=== PATIENT | male | born 1945 | race African-American/Black ===

== ENCOUNTER 2024-05-28 20:09 | Inpatient (IN) | payer MEDICARE, MEDICAID ==
[~2024-05-28] VITALS: Ht 185.4 cm; Wt 59.6 kg
[2024-05-28] MEDS ORDERED: ALBUTEROL (0.083%) 2.5MG/3ML NEB HHN SCH (20:30)
[2024-05-28 20:54] VITALS: RESP 38
[2024-05-28] MEDS: ALBUTEROL (0.083%) 2.5MG/3ML NEB HHN STA (20:54)
[2024-05-28] MEDS: IPRATROPIUM BROMIDE (0.02%) 0.5MG/2.5ML NEB HHN STA (20:54)
[2024-05-28 21:24] LABS: BG BASE EXCESS -6.6 mmol/L (-2.0-3.0); BG CARBOXYHEMOGLOBIN 0.1 % (0.5-1.5); BG DEOXYHEMOGLOBIN 0.3 % (0.0-5.0); BG FRACTION INSPIRED OXYGEN 100; BG HCO3 ACT 15.4 mmol/L (21.0-28.0); BG METHEMOGLOBIN 0.4 % (0.5-1.5); BG OXYGEN SATURATION 99.7 % (94.0-98.0); BG OXYHEMOGLOBIN 99.2 % (94.0-98.0); BG PCO2 21.1 mmHg (35.0-48.0); BG PH 7.482 (7.350-7.450); BG SAMPLE SITE RIGHT RADIAL; BG TOTAL HEMOGLOBIN 9.4 g/dL (13.5-17.5); BG VENT MODE MASK - BIPAP
[2024-05-28] MEDS: METHYLPREDNISOLONE SOD SUCC 125MG/2ML (ACT-O-VIAL) IV STA (21:32)
[2024-05-28 21:54] LABS: CHLORIDE 100 mEq/L (98-107); POTASSIUM 3.9 mEq/L (3.5-5.1); SODIUM 134 mEq/L (136-145)
[2024-05-28 21:55] LABS: CARBON DIOXIDE 17 mEq/L (21-32)
[2024-05-28 21:56] LABS: CALCIUM 9.3 mg/dL (8.7-10.4)
[2024-05-28 22:01] LABS: GLUCOSE 204 mg/dL (70-105); UREA NITROGEN BLOOD 15 mg/dL (9-23)
[2024-05-28 22:02] LABS: ALANINE AMINOTRANSFERASE 12 IU/L (10-49); ALBUMIN 4.2 g/dL (3.2-4.8); ASPARTATE AMINOTRANSFERASE 19 IU/L (<34)
[2024-05-28 22:03] LABS: BILIRUBIN DIRECT 0.2 mg/dL (<=3.0); BILIRUBIN TOTAL 0.5 mg/dL (0.1-1.0); PROTEIN TOTAL 7.8 g/dL (6.0-8.3)
[2024-05-28 22:04] LABS: DIFFERENTIAL COMMENT 1; HEMATOCRIT. 31.2 % (42.0-52.0); HEMOGLOBIN. 8.6 g/dL (14.0-18.0); MEAN CORPUSCULAR HEMOGLOBIN 25.4 pg (28.0-32.0); MEAN CORPUSCULAR HGB CONC 27.4 g/dL (31.0-37.0); MEAN CORPUSCULAR VOLUME 92.4 fL (80.0-94.0); MEAN PLATELET VOLUME 7.2 fl (7.4-10.4); PLATELET 449 x1000/uL (130-400); RED BLOOD CELL COUNT 3.38 mill/uL (4.7-6.1); RED CELL DISTRIBUTION WIDTH 21.6 % (11.6-14.6); WHITE BLOOD COUNT 16.1 x1000/uL (4.5-11.0)
[2024-05-28 22:11] LABS: INR 1.5; PARTIAL THROMBOPLASTIN TIME 25.3 sec (23.4-31.0); PROTHROMBIN TIME 16.1 sec (9.6-11.0)
[2024-05-28 22:14] LABS: TROPONIN I HIGH SENSITIVITY < 4 ng/L (3.0-53)
[2024-05-28 22:15] VITALS: RESP 33
[2024-05-28 22:18] LABS: LACTIC ACID 7.2 mmol/L (0.4-2.0)
[2024-05-28 22:23] LABS: ANISOCYTOSIS 2+; PLATELET ESTIMATE INCREASED
[2024-05-28] MEDS ORDERED: DEXTROSE 50% WATER 50ML SYRINGE IV PRN (23:45)
[2024-05-29] VITALS (9 sets, daily range): BP systolic 108–146; BP diastolic 74–123; PULSE 88–109; RESP 13–32; TEMP 36.16956–37.0296; O2SAT 91–100
[2024-05-29] MEDS: PIPERACILLIN/TAZO 3.375G/50ML 50 ML IV STA (00:54)
[2024-05-29] MEDS: SODIUM CHLORIDE 0.9% 1000ML BAG (SEPSIS BOLUS) IV ONE (00:55)
[2024-05-29] MEDS: VANCOMYCIN 1G PREMIX 200 ML IV SCH (03:55)
[2024-05-29 04:59] LABS: BASOPHILS % 0.1 % (0.0-2.0); HEMATOCRIT. 24.9 % (42.0-52.0); HEMOGLOBIN. 7.7 g/dL (14.0-18.0); LYMPHOCYTES % 1.2 % (20.0-50.0); MEAN CORPUSCULAR HEMOGLOBIN 25.9 pg (28.0-32.0); MEAN CORPUSCULAR VOLUME 83.5 fL (80.0-94.0); MONOCYTES % 1.1 % (2.0-8.0); NEUTROPHILS % 97.6 % (40.0-76.0); PLATELET 347 x1000/uL (130-400); RED BLOOD CELL COUNT 2.98 mill/uL (4.7-6.1); RED CELL DISTRIBUTION WIDTH 20.3 % (11.6-14.6); WHITE BLOOD COUNT 12.4 x1000/uL (4.5-11.0)
[2024-05-29 05:05] LABS: CARBON DIOXIDE 21 mEq/L (21-32); CHLORIDE 102 mEq/L (98-107); POTASSIUM 3.8 mEq/L (3.5-5.1); SODIUM 133 mEq/L (136-145)
[2024-05-29 05:06] LABS: CALCIUM 8.9 mg/dL (8.7-10.4)
[2024-05-29 05:08] LABS: DIFFERENTIAL COMMENT 1
[2024-05-29 05:10] LABS: CREATININE 0.9 mg/dL (0.6-1.3); GLUCOSE 174 mg/dL (70-105)
[2024-05-29 05:11] LABS: UREA NITROGEN BLOOD 17 mg/dL (9-23)
[2024-05-29 05:12] LABS: ALANINE AMINOTRANSFERASE 10 IU/L (10-49); ALBUMIN 3.9 g/dL (3.2-4.8); ASPARTATE AMINOTRANSFERASE 13 IU/L (<34)
[2024-05-29 05:13] LABS: BILIRUBIN DIRECT 0.1 mg/dL (<=3.0); BILIRUBIN TOTAL 0.4 mg/dL (0.1-1.0); PHOSPHORUS 4.2 mg/dL (2.5-4.9)
[2024-05-29] MEDS ORDERED: IOHEXOL-350 100 ML BOTTLE ONE (08:04)
[2024-05-29 08:20] LABS: BG CARBOXYHEMOGLOBIN 0.3 % (0.5-1.5); BG DEOXYHEMOGLOBIN 0.5 % (0.0-5.0); BG HCO3 ACT 19.1 mmol/L (21.0-28.0); BG OXYGEN SATURATION 99.5 % (94.0-98.0); BG OXYHEMOGLOBIN 99.2 % (94.0-98.0); BG PCO2 28.5 mmHg (35.0-48.0); BG PH 7.443 (7.350-7.450); BG PO2 139.3 mmHg (83.0-108.0); BG SAMPLE SITE RIGHT RADIAL; BG TOTAL HEMOGLOBIN 10.8 g/dL (13.5-17.5); BG VENT MODE NASAL CANNULA
[2024-05-29] MEDS ORDERED: CLONIDINE 0.1MG TABLET PO PRN (10:30)
[2024-05-29] MEDS ORDERED: DOCUSATE SODIUM 100MG CAPSULE PO PRN (10:30)
[2024-05-29] MEDS ORDERED: ACETAMINOPHEN 325MG TABLET PO PRN (10:30)
[2024-05-29] MEDS ORDERED: ONDANSETRON HCL 4MG/2ML INJ IV PRN (10:30)
[2024-05-29] MEDS: ENOXAPARIN 80MG/0.8ML SYR SUBCUT SCH (12:00)
[2024-05-29] MEDS: CEFTRIAXONE 1GM/50ML 50 ML IV SCH (13:00)
[2024-05-29] MEDS: IPRATROPIUM/ALBUTEROL 0.5-3(2.5)MG/3ML NEB HHN PRN (15:18)
[2024-05-29] MEDS ORDERED: IPRATROPIUM/ALBUTEROL 0.5-3(2.5)MG/3ML NEB HHN NR (15:30)
[2024-05-29] MEDS: ACETAMINOPHEN 325MG TABLET PO PRN (16:48)
[2024-05-29] MEDS ORDERED: IPRATROPIUM/ALBUTEROL 0.5-3(2.5)MG/3ML NEB HHN SCH (21:00)
[2024-05-30] VITALS (12 sets, daily range): BP systolic 99–135; BP diastolic 62–97; PULSE 90–119; RESP 17–27; TEMP 36.28068–36.9474; O2SAT 97–100
[2024-05-30 06:10] LABS: CARBON DIOXIDE 20 mEq/L (21-32); CHLORIDE 103 mEq/L (98-107); POTASSIUM 4.1 mEq/L (3.5-5.1); SODIUM 136 mEq/L (136-145)
[2024-05-30 06:11] LABS: CALCIUM 9.8 mg/dL (8.7-10.4)
[2024-05-30 06:12] LABS: HEMATOCRIT. 30.3 % (42.0-52.0); MEAN CORPUSCULAR HEMOGLOBIN 25.2 pg (28.0-32.0); MEAN CORPUSCULAR HGB CONC 29.8 g/dL (31.0-37.0); MEAN CORPUSCULAR VOLUME 84.7 fL (80.0-94.0); MEAN PLATELET VOLUME 7.5 fl (7.4-10.4); PLATELET 473 x1000/uL (130-400); RED BLOOD CELL COUNT 3.58 mill/uL (4.7-6.1); RED CELL DISTRIBUTION WIDTH 20.9 % (11.6-14.6); WHITE BLOOD COUNT 14.9 x1000/uL (4.5-11.0)
[2024-05-30 06:14] LABS: CREATININE 0.8 mg/dL (0.6-1.3); DIFFERENTIAL COMMENT 1
[2024-05-30 06:16] LABS: GLUCOSE 153 mg/dL (70-105); UREA NITROGEN BLOOD 21 mg/dL (9-23)
[2024-05-30 06:45] LABS: TROPONIN I HIGH SENSITIVITY < 4 ng/L (3.0-53)
[2024-05-30 09:55] LABS: CLARITY URINE CLEAR (CLEAR); COLOR URINE YELLOW (YELLOW); GLUCOSE URINE NEGATIVE (NEGATIVE); KETONES URINE NEGATIVE (NEGATIVE); LEUKOCYTE ESTERASE URINE NEGATIVE (NEGATIVE); NITRITE URINE NEGATIVE (NEGATIVE); OCCULT BLOOD URINE NEGATIVE (NEGATIVE); PROTEIN URINE 1+ (NEGATIVE); SPECIFIC GRAVITY URINE 1.038 (1.005-1.030); UROBILINOGEN URINE 0.2 E.U./dL (0.2-1.0)
[2024-05-30] MEDS ORDERED: ENOXAPARIN 60MG/0.6ML SYR SUBCUT SCH (10:05)
[2024-05-30 10:20] LABS: BACTERIA URINE 1+; RBC URINE NONE SEEN /hpf (0-2); WBC URINE 0-2 /hpf (0-2); YEAST URINE NONE SEEN
[2024-05-30 10:21] LABS: SQUAMOUS EPITHELIAL CELL URINE RARE /lpf (RARE/1+)
[2024-05-30] MEDS: ENOXAPARIN 60MG/0.6ML SYR SUBCUT SCH (11:35)
[2024-05-30 16:51] LABS: ANISOCYTOSIS 2+; PLATELET ESTIMATE INCREASED
[2024-05-31] VITALS (20 sets, daily range): BP systolic 103–139; BP diastolic 67–93; PULSE 106–124; RESP 20–33; TEMP 36.114–36.89184; O2SAT 97–100
[2024-05-31] MEDS: IPRATROPIUM BROMIDE (0.02%) 0.5MG/2.5ML NEB HHN SCH (18:00)
[2024-05-31] MEDS: BUDESONIDE 0.5MG/2ML NEB HHN SCH (20:00)
[2024-06-01] VITALS (16 sets, daily range): BP systolic 107–136; BP diastolic 66–100; PULSE 89–121; RESP 18–29; TEMP 35.94732–36.72516; O2SAT 94–100
[2024-06-01 08:25] LABS: CALCIUM 9.2 mg/dL (8.7-10.4); CHLORIDE 104 mEq/L (98-107); POTASSIUM 3.7 mEq/L (3.5-5.1); SODIUM 136 mEq/L (136-145)
[2024-06-01 08:26] LABS: CARBON DIOXIDE 22 mEq/L (21-32)
[2024-06-01 08:31] LABS: CREATININE 0.6 mg/dL (0.6-1.3); GLUCOSE 107 mg/dL (70-105); HEMATOCRIT. 26.3 % (42.0-52.0); MEAN CORPUSCULAR HEMOGLOBIN 25.3 pg (28.0-32.0); MEAN CORPUSCULAR HGB CONC 30.6 g/dL (31.0-37.0); MEAN CORPUSCULAR VOLUME 82.9 fL (80.0-94.0); MEAN PLATELET VOLUME 7.7 fl (7.4-10.4); PLATELET 391 x1000/uL (130-400); RED BLOOD CELL COUNT 3.17 mill/uL (4.7-6.1); RED CELL DISTRIBUTION WIDTH 21.2 % (11.6-14.6); WHITE BLOOD COUNT 12.4 x1000/uL (4.5-11.0)
[2024-06-01 08:32] LABS: UREA NITROGEN BLOOD 14 mg/dL (9-23)
[2024-06-01 08:58] LABS: DIFFERENTIAL COMMENT 1
[2024-06-01] MEDS: METOPROLOL TARTRATE 50MG TABLET PO SCH (12:35)
[2024-06-02] VITALS (17 sets, daily range): BP systolic 87–125; BP diastolic 58–79; PULSE 84–123; RESP 20–28; TEMP 36.22512–37.11408; O2SAT 95–98
[2024-06-02 04:54] LABS: PLATELET ESTIMATE NORMAL
[2024-06-02 08:16] LABS: HEMATOCRIT. 28.4 % (42.0-52.0); HEMOGLOBIN. 8.5 g/dL (14.0-18.0); MEAN CORPUSCULAR HEMOGLOBIN 25.4 pg (28.0-32.0); MEAN CORPUSCULAR HGB CONC 29.8 g/dL (31.0-37.0); MEAN CORPUSCULAR VOLUME 85.2 fL (80.0-94.0); MEAN PLATELET VOLUME 7.5 fl (7.4-10.4); PLATELET 380 x1000/uL (130-400); RED BLOOD CELL COUNT 3.34 mill/uL (4.7-6.1); RED CELL DISTRIBUTION WIDTH 21.2 % (11.6-14.6); WHITE BLOOD COUNT 9.4 x1000/uL (4.5-11.0)
[2024-06-02 08:22] LABS: CHLORIDE 103 mEq/L (98-107); POTASSIUM 4.2 mEq/L (3.5-5.1); SODIUM 135 mEq/L (136-145)
[2024-06-02 08:23] LABS: CARBON DIOXIDE 23 mEq/L (21-32)
[2024-06-02 08:27] LABS: DIFFERENTIAL COMMENT 1
[2024-06-02 08:28] LABS: CREATININE 0.6 mg/dL (0.6-1.3); GLUCOSE 82 mg/dL (70-105); UREA NITROGEN BLOOD 13 mg/dL (9-23)
[2024-06-02] MEDS: HYDROCODONE/ACETAMINOPHEN 5/325MG TABLET PO PRN (11:10)
[2024-06-02 13:54] LABS: ANISOCYTOSIS 3+; PLATELET ESTIMATE NORMAL
[2024-06-02] MEDS ORDERED: METO-539 PO (14:08)
[2024-06-02] MEDS ORDERED: LORAZEPAM 1MG TABLET PO NR (17:45)
[2024-06-03] VITALS (14 sets, daily range): BP systolic 92–115; BP diastolic 65–76; PULSE 88–122; RESP 20–32; TEMP 36.22512–37.16964; O2SAT 97–100
[2024-06-03] MEDS: ENOXAPARIN 40MG/0.4ML SYR SUBCUT SCH (12:14)
[2024-06-03] MEDS ORDERED: NALOXONE HCL 0.4MG/ML VIAL IV PRN (13:45)
[2024-06-04] VITALS (12 sets, daily range): BP systolic 96–140; BP diastolic 63–125; PULSE 84–115; RESP 20–34; TEMP 36.114–36.61404; O2SAT 95–99
[2024-06-04] MEDS: BUDESONIDE 0.5MG/2ML NEB HHN SCH (21:36)
[2024-06-05] VITALS (10 sets, daily range): BP systolic 92–129; BP diastolic 54–80; PULSE 90–125; RESP 18–31; TEMP 35.89176–37.00296; O2SAT 95–100
[2024-06-05 05:59] LABS: CARBON DIOXIDE 23 mEq/L (21-32); CHLORIDE 103 mEq/L (98-107); POTASSIUM 3.8 mEq/L (3.5-5.1); SODIUM 134 mEq/L (136-145)
[2024-06-05 06:01] LABS: CALCIUM 8.7 mg/dL (8.7-10.4)
[2024-06-05 06:03] LABS: CREATININE 0.7 mg/dL (0.6-1.3)
[2024-06-05 06:04] LABS: GLUCOSE 148 mg/dL (70-105)
[2024-06-05 06:05] LABS: UREA NITROGEN BLOOD 16 mg/dL (9-23)
[2024-06-05 06:11] LABS: HEMATOCRIT. 28.5 % (42.0-52.0); HEMOGLOBIN. 8.5 g/dL (14.0-18.0); MEAN CORPUSCULAR HEMOGLOBIN 25.5 pg (28.0-32.0); MEAN CORPUSCULAR HGB CONC 29.9 g/dL (31.0-37.0); MEAN CORPUSCULAR VOLUME 85.2 fL (80.0-94.0); MEAN PLATELET VOLUME 7.3 fl (7.4-10.4); PLATELET 331 x1000/uL (130-400); RED BLOOD CELL COUNT 3.34 mill/uL (4.7-6.1); RED CELL DISTRIBUTION WIDTH 21.6 % (11.6-14.6); WHITE BLOOD COUNT 12.5 x1000/uL (4.5-11.0)
[2024-06-05 06:46] LABS: DIFFERENTIAL COMMENT 1
[2024-06-05 12:58] LABS: ANISOCYTOSIS 3+; HYPOCHROMASIA 1+; PLATELET ESTIMATE NORMAL
[2024-06-06] VITALS (7 sets, daily range): BP systolic 104–124; BP diastolic 64–78; PULSE 90–124; RESP 16–30; TEMP 36.22512–37.28076; O2SAT 97–99
[2024-06-06 07:22] LABS: HEMATOCRIT. 27.6 % (42.0-52.0); HEMOGLOBIN. 8.5 g/dL (14.0-18.0); MEAN CORPUSCULAR HEMOGLOBIN 25.4 pg (28.0-32.0); MEAN CORPUSCULAR HGB CONC 30.6 g/dL (31.0-37.0); MEAN CORPUSCULAR VOLUME 82.9 fL (80.0-94.0); MEAN PLATELET VOLUME 7.6 fl (7.4-10.4); PLATELET 298 x1000/uL (130-400); RED BLOOD CELL COUNT 3.33 mill/uL (4.7-6.1); RED CELL DISTRIBUTION WIDTH 21.7 % (11.6-14.6)
[2024-06-06 07:31] LABS: DIFFERENTIAL COMMENT 1
[2024-06-06 07:32] LABS: CHLORIDE 101 mEq/L (98-107); POTASSIUM 3.8 mEq/L (3.5-5.1); SODIUM 134 mEq/L (136-145)
[2024-06-06 07:33] LABS: CALCIUM 8.9 mg/dL (8.7-10.4); CARBON DIOXIDE 23 mEq/L (21-32)
[2024-06-06 07:38] LABS: CREATININE 0.6 mg/dL (0.6-1.3); GLUCOSE 127 mg/dL (70-105); UREA NITROGEN BLOOD 15 mg/dL (9-23)
[2024-06-06 10:45] LABS: ANISOCYTOSIS 3+; HYPOCHROMASIA 1+; PLATELET ESTIMATE NORMAL
[2024-06-06] MEDS: HYDROCODONE/ACETAMINOPHEN 10/325MG TABLET PO PRN (11:52)
[2024-06-07] VITALS (7 sets, daily range): BP systolic 98–119; BP diastolic 61–72; PULSE 93–125; RESP 18–20; TEMP 35.89176–36.78072; O2SAT 97–100
[2024-06-08] VITALS: BP 111/72; PULSE 121; RESP 21; TEMP 36.83628; O2SAT 99
[2024-06-08 04:00] VITALS: BP 108/73; PULSE 77; RESP 18; TEMP 36.89184; O2SAT 98
[2024-06-08 08:00] VITALS: BP_SYST 110; BP_SYST 131; BP_DIAS 66; BP_DIAS 95; PULSE 117; PULSE 125; RESP 16; RESP 18; TEMP 36.55848; TEMP 37.16964; O2SAT 98
[2024-06-08 11:24] VITALS: PULSE 98; RESP 18; O2SAT 97
[2024-06-08] MEDS: IPRATROPIUM/ALBUTEROL 0.5-3(2.5)MG/3ML NEB HHN PRN (11:24)
[2024-06-08 12:00] VITALS: BP 117/74; PULSE 91; RESP 20; TEMP 36.55848
[2024-06-08 16:00] VITALS: BP 112/69; PULSE 110; RESP 20; TEMP 35.94732; O2SAT 99
[2024-06-08] MEDS: METHYLPREDNISOLONE SOD SUCC 40MG/ML (ACT-O-VIAL) IV SCH (16:31)
[2024-06-08] MEDS ORDERED: NALOXONE HCL 0.4MG/ML VIAL IV PRN (21:30)
[2024-06-09 08:00] VITALS: BP 129/80; PULSE 114; RESP 19; TEMP 36.3918; O2SAT 100
[2024-06-09] MEDS: ENOXAPARIN 30MG/0.3ML SYR SUBCUT SCH (08:31)
[2024-06-09 12:00] VITALS: BP 132/74; PULSE 110; RESP 19; TEMP 36.3918; O2SAT 100
[2024-06-09 16:00] VITALS: BP 119/69; PULSE 87; RESP 18; TEMP 35.72508; O2SAT 95
[2024-06-09 20:00] VITALS: BP 122/73; PULSE 99; RESP 18; TEMP 36.3918; O2SAT 98
[2024-06-09] MEDS: ENOXAPARIN 60MG/0.6ML SYR SUBCUT SCH (21:00)
[2024-06-09 21:38] LABS: INR 1.2; PROTHROMBIN TIME 12.7 sec (9.6-11.0)
[2024-06-10] VITALS (7 sets, daily range): BP systolic 114–131; BP diastolic 55–80; PULSE 88–101; RESP 18–20; TEMP 35.50284–36.3918; O2SAT 95–100
[2024-06-10] MEDS: ENOXAPARIN 60MG/0.6ML SYR SUBCUT SCH (02:04)
[2024-06-10] MEDS ORDERED: APIX5TAB MT (11:46)
[2024-06-10 12:11] LABS: BG BASE EXCESS -2.2 mmol/L (-2.0-3.0); BG CARBOXYHEMOGLOBIN 0.5 % (0.5-1.5); BG DEOXYHEMOGLOBIN 0.9 % (0.0-5.0); BG FRACTION INSPIRED OXYGEN 21; BG HCO3 ACT 19.9 mmol/L (21.0-28.0); BG METHEMOGLOBIN 0.3 % (0.5-1.5); BG OXYGEN SATURATION 99.1 % (94.0-98.0); BG OXYHEMOGLOBIN 98.3 % (94.0-98.0); BG PCO2 25.4 mmHg (35.0-48.0); BG PH 7.512 (7.350-7.450); BG PO2 117.2 mmHg (83.0-108.0); BG SAMPLE SITE RIGHT RADIAL; BG TOTAL HEMOGLOBIN 9.1 g/dL (13.5-17.5); BG VENT MODE ROOM AIR
[2024-06-10] MEDS ORDERED: P20 MT (16:09)
[2024-06-11] VITALS: BP 132/64; PULSE 89; RESP 19; TEMP 36.50292; O2SAT 98
[2024-06-11 04:00] VITALS: BP 122/74; PULSE 90; RESP 19; TEMP 36.50292; O2SAT 97
[2024-06-11 08:00] VITALS: BP 124/82; PULSE 109; RESP 21; TEMP 36.114; O2SAT 98
[2024-06-11] MEDS: PREDNISONE 20MG TABLET PO SCH (08:58)
[2024-06-11 12:00] VITALS: BP 127/79; PULSE 86; RESP 20; TEMP 36.50292; O2SAT 100
[2024-06-11] MEDS: HYDROCODONE/ACETAMINOPHEN 5/325MG TABLET PO PRN (14:48)
[2024-06-11 16:00] VITALS: BP 128/80; PULSE 100; RESP 20; TEMP 36.16956; O2SAT 100
[2024-06-11 20:00] VITALS: BP 112/63; PULSE 83; RESP 18; TEMP 37.16964; O2SAT 100
[2024-06-12] VITALS (7 sets, daily range): BP systolic 115–137; BP diastolic 66–91; PULSE 64–103; RESP 18–20; TEMP 36.28068–36.83628; O2SAT 95–100
[2024-06-12] MEDS ORDERED: APIX5TAB MT (16:11)
[2024-06-12] MEDS ORDERED: METO-539 MT (16:12)
== END 2024-06-12 16:37 | disposition home or self-care (01) | DRG 871 ==
LOC: EDBD 20:09 → ER 20:09 → 5EST 23:23 → EDBEDREQ 23:30 → EDBEDREQTM 23:30 → EDBEDREQSVC 23:30 → 7WST 06-06 13:40 → 6EST 06-08 16:21
PROVIDERS: ADMIT Family Medicine Adult Medicine; ATTEND Family Medicine Adult Medicine
PROC: 5A09357 Assistance with Respiratory Ventilation, Less than 24 Consecutive Hours, Continuous Positive Airway Pressure (ICD-10-PCS; principal; 2024-05-28)
DX: A41.9 Sepsis, unspecified organism (principal); J18.9 Pneumonia, unspecified organism; J96.21 Acute and chronic respiratory failure with hypoxia; D84.9 Immunodeficiency, unspecified; E87.20 Acidosis, unspecified; C78.7 Secondary malignant neoplasm of liver and intrahepatic bile duct; E87.1 Hypo-osmolality and hyponatremia; J44.1 Chronic obstructive pulmonary disease with (acute) exacerbation; I42.9 Cardiomyopathy, unspecified; I82.621 Acute embolism and thrombosis of deep veins of right upper extremity; C34.01 Malignant neoplasm of right main bronchus; J91.0 Malignant pleural effusion; D68.59 Other primary thrombophilia; J44.0 Chronic obstructive pulmonary disease with (acute) lower respiratory infection; I10 Essential (primary) hypertension; Z20.822 Contact with and (suspected) exposure to COVID-19; D64.9 Anemia, unspecified; D75.839 Thrombocytosis, unspecified; I45.10 Unspecified right bundle-branch block; I25.10 Atherosclerotic heart disease of native coronary artery without angina pectoris; I49.5 Sick sinus syndrome; R16.0 Hepatomegaly, not elsewhere classified; R74.8 Abnormal levels of other serum enzymes; S09.8XXA Other specified injuries of head, initial encounter; W18.39XA Other fall on same level, initial encounter; Z79.01 Long term (current) use of anticoagulants; Z86.711 Personal history of pulmonary embolism; Z87.891 Personal history of nicotine dependence; Z95.0 Presence of cardiac pacemaker; Z95.828 Presence of other vascular implants and grafts; Z99.81 Dependence on supplemental oxygen; Y93.89 Activity, other specified; Y92.89 Other specified places as the place of occurrence of the external cause; Y99.8 Other external cause status; Z51.5 Encounter for palliative care
CPT/HCPCS: 36415; 36600; 71045; 71275; 80048; 80076; 81003; 82375; 82805; 83605; 83735; 83880; 84100; 84145; 84484; 85025; 85379; 87426; 93005; 93306; 93971; 94618; 94640; 94660; 97162; 97166; 97535; 99285; J0696; J1650; J2543; J2919; J2920; J3370; J7030; J7512; J7626; Q9967